=== PATIENT | female | born 1965 | race Caucasian/White ===

== ENCOUNTER 2017-07-05 23:57 | Emergency (ER) | payer BC ==
[~2017-07-05] VITALS: Ht 172.7 cm; Wt 102.1 kg
[~2017-07-05 23:57] MED LIST: ZOFRAN4 MG PO
[2017-07-06] MEDS ORDERED: LISINOPRIL20 MG PO
[2017-07-06] MEDS ORDERED: ESTRACE1 M1 PO (00:01)
[2017-07-06] MEDS ORDERED: LEVOTHYROXINE50 MCG PO (00:01)
[2017-07-06 00:40] LABS: BILIRUBIN 1+ (NEGATIVE); BLOOD 3+ (NEGATIVE); CLARITY SL CLOUDY (CLEAR); COLOR ORANGE (YELLOW); GLUCOSE TRACE (NEGATIVE); KETONE TRACE (NEGATIVE); NITRITE POSITIVE (NEGATIVE); UROBILINOGEN >= 8.0 E.U./dl (0.2-1.0)
[2017-07-06 00:57] LABS: LEUKO ESTERASE 3+ (NEGATIVE)
[2017-07-06 00:59] LABS: BACTERIA 1+; EPITHELIAL CELLS 45-50; RBC TNTC rbc/hpf (0-2); WBC TNTC wbc/hpf (0-5)
[2017-07-06] MEDS ORDERED: SEPTDS PO (01:03)
[2017-07-06] MEDS ORDERED: PYRIDIUM100 MG PO (01:04)
== END 2017-07-06 01:37 | disposition home or self-care (01) ==
LOC: ED 23:57
PROVIDERS: Student in an Organized Health Care Education/Training Program
DX: N39.0 Urinary tract infection, site not specified (principal); Z98.890 Other specified postprocedural states; Z79.899 Other long term (current) drug therapy; Z88.0 Allergy status to penicillin